=== PATIENT | female | born 1955 | race Caucasian/White ===

== ENCOUNTER 2017-03-03 18:06 | Emergency (ER) | payer BC ==
--- NOTE | 2017-03-03 18:50 | EDM.PDOC ---
ED HPI GENERAL MEDICAL PROBLEM - General Chief Complaint: Neurological Problem Stated Complaint: DIZZY Time Seen by Provider: 03/03/17 18:49 Source of Information: Reports: Patient History Limitations: Reports: No Limitations - History of Present Illness INITIAL COMMENTS - FREE TEXT/NARRATIVE: History of present illness: [61-year-old female presenting with complaints of feeling dizzy. Patient unable to describe whether it's more of a vertical or an actual syncope nature of dizziness.] Review of systems: As per history of present illness and below otherwise all systems reviewed and negative. Past medical history: As per history of present illness and as reviewed below otherwise noncontributory. Surgical history: As per history of present illness and as reviewed below otherwise noncontributory. Social history: No reported history of drug or alcohol abuse. Family history: As per history of present illness and as reviewed below otherwise noncontributory. Physical exam: HEENT: Atraumatic, normocephalic, pupils reactive, negative for conjunctival pallor or scleral icterus, mucous membranes moist, throat clear, neck supple, nontender, trachea midline. Lungs: Clear to auscultation, breath sounds equal bilaterally, chest nontender. Heart: S1S2, regular, negative for clicks, rubs, or JVD. Abdomen: Soft, nondistended, nontender. Negative for masses or hepatosplenomegaly. Negative for costovertebral tenderness. Pelvis: Stable nontender. Genitourinary: Deferred. Rectal: Deferred. Extremities: Atraumatic, negative for cords or calf pain. Neurovascular unremarkable. Neuro: Awake, alert, oriented. Cranial nerves II through XII unremarkable. Cerebellum unremarkable. Motor and sensory unremarkable throughout. Exam nonfocal. Upon exam patient indicated she had more feelings of dizziness with position change and so orthostatic blood pressures were ordered. Diagnostics: [Static vital signs, CBC, CMP] Therapeutics: [] Impression: [Vertigo] Plan: [Monitor salt intake monitor blood pressure] Definitive disposition and diagnosis as appropriate pending reevaluation and review of above. Headache Pain Score (Numeric/FACES): 5 - Related Data Allergies Allergy/AdvReac Type Severity Reaction Status Date / Time No Known Allergies Allergy Verified 03/03/17 18:19 Home Meds: Home Meds . [No Known Home Meds] 03/03/17 [History] Past Medical History - Past Health History Medical/Surgical History: Denies Medical/Surgical History - Infectious Disease History Infectious Disease History: Reports: Chicken Pox, Shingles - Past Surgical History GI Surgical History: Reports: Appendectomy Female Surgical History: Reports: Section Social & Family History - Family History Family Medical History: Noncontributory - Tobacco Use Smoking Status *Q: Never Smoker - Recreational Drug Use Recreational Drug Use: No ED ROS GENERAL - Review of Systems Review Of Systems: See Below (See history of present illness) ED EXAM, GENERAL - Physical Exam Exam: See Below (See history of present illness) Course - Vital Signs Last Recorded V/S: Last Vital Signs Temp 36.4 C 03/03/17 20:00 Pulse 63 03/03/17 20:00 Resp 16 03/03/17 20:00 BP 145/68 H 03/03/17 20:00 Pulse Ox 99 03/03/17 20:00 Orthostatic Blood Pressure [ 159/66 Standing] Orthostatic Blood Pressure [ 148/61 Sitting] Orthostatic Blood Pressure [ 152/62 Supine] - Orders/Labs/Meds Orders: Active Orders 24 hr Category Date Time Status EKG 12 Lead [EKG Documentation Completion] [RC] STAT Care 03/03/17 18:24 Active Labs: Laboratory Tests 03/03/17 03/03/17 03/03/17 Range/Units 19:33 19:33 19:33 WBC 6.64 (4.0-11.0) K/uL RBC 4.18 L (4.30-5.90) M/uL Hgb 12.4 (12.0-16.0) g/dL Hct 37.5 (36.0-46.0) % MCV 89.7 (80.0-98.0) fL MCH 29.7 (27.0-32.0) pg MCHC 33.1 (31.0-37.0) g/dL RDW Std Deviation 42.7 (28.0-62.0) fl RDW Coeff of Irwin 13 (11.0-15.0) % Plt Count 158 (150-400) K/uL MPV 10.10 (7.40-12.00) fL Neut % (Auto) 51.6 (48.0-80.0) % Lymph % (Auto) 40.8 H (16.0-40.0) % Charlton % (Auto) 5.7 (0.0-15.0) % Eos % (Auto) 1.1 (0.0-7.0) % Baso % (Auto) 0.8 (0.0-1.5) % Neut # (Auto) 3.4 (1.4-5.7) K/uL Lymph # (Auto) 2.7 H (0.6-2.4) K/uL Charlton # (Auto) 0.4 (0.0-0.8) K/uL Eos # (Auto) 0.1 (0.0-0.7) K/uL Baso # (Auto) 0.1 (0.0-0.1) K/uL Nucleated RBC % 0.0 /100WBC Nucleated RBCs # 0 K/uL Sodium 140 (136-146) mmol/L Potassium 4.2 (3.5-5.1) mmol/L Chloride 108 (98-110) mmol/L Carbon Dioxide 22 (21-31) mmol/L BUN 16 (6.0-23.0) mg/dL Creatinine 0.8 (0.6-1.5) mg/dL Est Cr Clr Drug Dosing 67.38 mL/min Estimated GFR (MDRD) > 60.0 ml/min Glucose 104 (60-110) mg/dL Calcium 9.1 (8.8-10.8) mg/dL Total Bilirubin 0.5 (0.1-1.5) mg/dL AST 16 (5-40) IU/L ALT 18 (8-54) IU/L Alkaline Phosphatase 71 (40-150) Troponin I < 0.10 (0.0-0.29) NG/ML Total Protein 7.2 (6.0-8.0) g/dL Albumin 4.2 (3.4-4.8) g/dL Globulin 3.0 (2.0-3.5) g/dL Albumin/Globulin Ratio 1.4 (1.3-2.8) Departure - Departure Time of Disposition: 20:38 Disposition: Home, Self-Care 01 Condition: Good Clinical Impression: Vertigo - Discharge Information Forms: ED Department Discharge Additional Instructions: The following information is given to patients seen in the emergency department who are being discharged to home. This information is to outline your options for follow-up care. We provide all patients seen in our emergency department with a follow-up referral. The need for follow-up, as well as the timing and circumstances, are variable depending upon the specifics of your emergency department visit. If you don't have a primary care physician on staff, we will provide you with a referral. We always advise you to contact your personal physician following an emergency department visit to inform them of the circumstance of the visit and for follow-up with them and/or the need for any referrals to a consulting specialist. The emergency department will also refer you to a specialist when appropriate. This referral assures that you have the opportunity for follow-up care with a specialist. All of these measure are taken in an effort to provide you with optimal care, which includes your follow-up. Under all circumstances we always encourage you to contact your private physician who remains a resource for coordinating your care. When calling for follow-up care, please make the office aware that this follow-up is from your recent emergency room visit. If for any reason you are refused follow-up, please contact the [facility] Emergency Department at and asked to speak to the emergency department charge nurse. Monitored ideas discussed Take your blood pressure randomly and keep a journal Follow-up with PCP in 1-2 days Return to ED as needed as discussed
[2017-03-03 20:01] LABS: CHLORIDE,CL 108 mmol/L (98-110); SODIUM,NA 140 mmol/L (136-146)
[2017-03-03 20:48] VITALS: BP 135/74
== END 2017-03-03 20:46 | disposition home or self-care (01) ==
LOC: MW.ED 18:06
DX: R42 Dizziness and giddiness (principal); Z90.49 Acquired absence of other specified parts of digestive tract
CPT/HCPCS: 36415; 80053; 84484; 85025; 93005; 99282; 99285-25

== ENCOUNTER 2017-03-06 19:18 | Observation (INO) | payer BC ==
[2017-03-06] MEDS ORDERED: Sodium Chloride 0.9% 1,000 ML IV ONE (19:25)
--- NOTE | 2017-03-06 19:26 | EDM.PDOC ---
ED HPI GENERAL MEDICAL PROBLEM - General Stated Complaint: NUMBNESS RT ARM/HBP Time Seen by Provider: 03/06/17 19:25 Source of Information: Reports: Patient - History of Present Illness INITIAL COMMENTS - FREE TEXT/NARRATIVE: HISTORY AND PHYSICAL: History of present illness: [][]Patient presents via private vehicle She developed left facial numbness and left arm numbness approximately 30 minutes prior to arrival, she does complain of some mild dizziness No fever nausea vomiting chills sweats no chest pain shortness breath headache palpitation no bowel or urine symptoms Review of systems: As per history of present illness and below otherwise all systems reviewed and negative. Past medical history: As per history of present illness and as reviewed below otherwise noncontributory. Surgical history: As per history of present illness and as reviewed below otherwise noncontributory. Social history: No reported history of drug or alcohol abuse. Family history: As per history of present illness and as reviewed below otherwise noncontributory. Physical exam: HEENT: Atraumatic, normocephalic, pupils reactive, negative for conjunctival pallor or scleral icterus, mucous membranes moist, throat clear, neck supple, nontender, trachea midline. Lungs: Clear to auscultation, breath sounds equal bilaterally, chest nontender. Heart: S1S2, regular, negative for clicks, rubs, or JVD. Abdomen: Soft, nondistended, nontender. Negative for masses or hepatosplenomegaly. Negative for costovertebral tenderness. Pelvis: Stable nontender. Genitourinary: Deferred. Rectal: Deferred. Extremities: Atraumatic, negative for cords or calf pain. Neurovascular unremarkable. Neuro: Awake, alert, oriented. Cranial nerves II through XII unremarkable. Cerebellum unremarkable. Motor and sensory unremarkable throughout. Exam nonfocal. Diagnostics: []Lab as below EKG Chest [address] without Therapeutics: []1 L normal saline bolus KCl 40 mEq by mouth now Impression: []Left-sided facial numbness Definitive disposition and diagnosis as appropriate pending reevaluation and review of above. headache Pain Score (Numeric/FACES): 3 - Related Data Allergies Allergy/AdvReac Type Severity Reaction Status Date / Time No Known Allergies Allergy Verified 03/06/17 20:14 Home Meds: Home Meds . [No Known Home Meds] 03/03/17 [History] Past Medical History - Past Health History Medical/Surgical History: Denies Medical/Surgical History - Infectious Disease History Infectious Disease History: Reports: Chicken Pox, Shingles - Past Surgical History GI Surgical History: Reports: Appendectomy Female Surgical History: Reports: Section Social & Family History - Family History Family Medical History: Noncontributory - Tobacco Use Smoking Status *Q: Never Smoker - Recreational Drug Use Recreational Drug Use: No ED ROS GENERAL - Review of Systems Review Of Systems: ROS reveals no pertinent complaints other than HPI. ED EXAM, GENERAL - Physical Exam Exam: See Below Course - Vital Signs Last Recorded V/S: Last Vital Signs Temp 36.3 C 03/06/17 19:30 Pulse 110 H 03/06/17 19:30 Resp 18 03/06/17 19:30 BP 194/107 H 03/06/17 19:30 Pulse Ox 96 03/06/17 19:30 - Orders/Labs/Meds Orders: Active Orders 24 hr Category Date Time Status EKG Documentation Completion [RC] STAT Care 03/06/17 19:25 Active Chest 1V Frontal [CR] Stat Exams 03/06/17 19:24 Taken Head wo Cont [CT] Stat Exams 03/06/17 19:24 Taken Labs: Laboratory Tests 03/06/17 03/06/17 03/06/17 Range/Units 19:28 19:28 19:28 WBC 9.69 (4.0-11.0) K/uL RBC 4.51 (4.30-5.90) M/uL Hgb 13.6 (12.0-16.0) g/dL Hct 40.0 (36.0-46.0) % MCV 88.7 (80.0-98.0) fL MCH 30.2 (27.0-32.0) pg MCHC 34.0 (31.0-37.0) g/dL RDW Std Deviation 41.4 (28.0-62.0) fl RDW Coeff of Irwin 13 (11.0-15.0) % Plt Count 177 (150-400) K/uL MPV 10.30 (7.40-12.00) fL Neut % (Auto) 42.2 L (48.0-80.0) % Lymph % (Auto) 48.8 H (16.0-40.0) % Esmeralda % (Auto) 6.6 (0.0-15.0) % Eos % (Auto) 1.9 (0.0-7.0) % Baso % (Auto) 0.5 (0.0-1.5) % Neut # (Auto) 4.1 (1.4-5.7) K/uL Lymph # (Auto) 4.7 H (0.6-2.4) K/uL Esmeralda # (Auto) 0.6 (0.0-0.8) K/uL Eos # (Auto) 0.2 (0.0-0.7) K/uL Baso # (Auto) 0.1 (0.0-0.1) K/uL Nucleated RBC % 0.0 /100WBC Nucleated RBCs # 0 K/uL INR 1.04 (0.86-1.11) Sodium 138 (136-146) mmol/L Potassium 4.3 (3.5-5.1) mmol/L Chloride 103 (98-110) mmol/L Carbon Dioxide 22 (21-31) mmol/L BUN 11 (6.0-23.0) mg/dL Creatinine 0.9 (0.6-1.5) mg/dL Est Cr Clr Drug Dosing TNP Estimated GFR (MDRD) > 60.0 ml/min Glucose 110 (60-110) mg/dL Calcium 9.7 (8.8-10.8) mg/dL Total Bilirubin 0.6 (0.1-1.5) mg/dL AST 19 (5-40) IU/L ALT 20 (8-54) IU/L Alkaline Phosphatase 93 (40-150) Troponin I (0.0-0.29) NG/ML Total Protein 8.1 H (6.0-8.0) g/dL Albumin 4.7 (3.4-4.8) g/dL Globulin 3.4 (2.0-3.5) g/dL Albumin/Globulin Ratio 1.4 (1.3-2.8) / Range/Units 19:28 WBC (4.0-11.0) K/uL RBC (4.30-5.90) M/uL Hgb (12.0-16.0) g/dL Hct (36.0-46.0) % MCV (80.0-98.0) fL MCH (27.0-32.0) pg MCHC (31.0-37.0) g/dL RDW Std Deviation (28.0-62.0) fl RDW Coeff of Irwin (11.0-15.0) % Plt Count (150-400) K/uL MPV (7.40-12.00) fL Neut % (Auto) (48.0-80.0) % Lymph % (Auto) (16.0-40.0) % Esmeralda % (Auto) (0.0-15.0) % Eos % (Auto) (0.0-7.0) % Baso % (Auto) (0.0-1.5) % Neut # (Auto) (1.4-5.7) K/uL Lymph # (Auto) (0.6-2.4) K/uL Esmeralda # (Auto) (0.0-0.8) K/uL Eos # (Auto) (0.0-0.7) K/uL Baso # (Auto) (0.0-0.1) K/uL Nucleated RBC % /100WBC Nucleated RBCs # K/uL INR (0.86-1.11) Sodium (136-146) mmol/L Potassium (3.5-5.1) mmol/L Chloride (98-110) mmol/L Carbon Dioxide (21-31) mmol/L BUN (6.0-23.0) mg/dL Creatinine (0.6-1.5) mg/dL Est Cr Clr Drug Dosing Estimated GFR (MDRD) ml/min Glucose (60-110) mg/dL Calcium (8.8-10.8) mg/dL Total Bilirubin (0.1-1.5) mg/dL AST (5-40) IU/L ALT (8-54) IU/L Alkaline Phosphatase (40-150) Troponin I < 0.10 (0.0-0.29) NG/ML Total Protein (6.0-8.0) g/dL Albumin (3.4-4.8) g/dL Globulin (2.0-3.5) g/dL Albumin/Globulin Ratio (1.3-2.8) Meds: Medications Discontinued Medications Generic Name Dose Route Start Last Admin Trade Name Freq PRN Reason Stop Dose Admin Aspirin 324 mg 03/06/17 21:03 Aspirin PO 03/06/17 21:04 ONETIME ONE Sodium Chloride 1,000 mls @ 999 mls/hr 03/06/17 19:25 03/06/17 19:50 Normal Saline IV 03/06/17 20:25 999 mls/hr STAT ONE Administration Potassium Chloride 40 meq 03/06/17 20:59 Potassium Chloride PO 03/06/17 21:00 ONETIME ONE Departure - Departure Time of Disposition: 21:14 Disposition: Refer to Observation Condition: Fair Clinical Impression: Numbness, Dizziness - Discharge Information - My Orders Last 24 Hours: My Active Orders 03/06/17 19:24 Chest 1V Frontal [CR] Stat Head wo Cont [CT] Stat 03/06/17 19:25 EKG Documentation Completion [RC] STAT - Assessment/Plan Last 24 Hours: My Active Orders 03/06/17 19:24 Chest 1V Frontal [CR] Stat Head wo Cont [CT] Stat 03/06/17 19:25 EKG Documentation Completion [RC] STAT
[2017-03-06 19:59] LABS: CHLORIDE,CL 103 mmol/L (98-110); SODIUM,NA 138 mmol/L (136-146)
[2017-03-06] MEDS ORDERED: Potassium Chloride 10% 20 MEQ/15 ML Soln 30 ML UD Cup PO ONE (20:59)
[2017-03-06] MEDS ORDERED: Aspirin 81 MG Tab.Chew PO ONE (21:03)
--- NOTE | 2017-03-07 08:01 | CT ---
EXAM DATE: 03/06/17 PATIENT'S AGE: 61 Patient: BRANDON BECKWITH Facility: [place], [place] Site . Site : 1955 Study: CT Head [id number] 7:44:04 PM Ordering Physician: Doctor Manzo Final Report: INDICATION: PAIN LT ARM/FACE X 45 MIN TECHNIQUE: CT Head without contrast. COMPARISON: None. FINDINGS: There is no sign of intracranial hemorrhage or mass effect. Ventricles and sulci are symmetric and midline. The shepherd-white differentiation is preserved. No abnormal intra-axial or extra-axial fluid collection. No acute disease of the visualized paranasal sinuses and mastoid air cells. No fracture evident. No scalp hematoma/laceration. IMPRESSION: No acute intracranial process. If symptoms persist consider further evaluation with a stroke protocol MRI as clinically warranted Dictated by: Luis Miguel Jimenez MD @ 03/06/2017 20:00:22 (Electronic Signature) Report Signed by Proxy. ALYSIA
--- NOTE | 2017-03-07 08:12 | CR ---
EXAM DATE: 03/06/17 PATIENT'S AGE: 61 Patient: BRANDON BECKWITH Facility: [place], [place] Site . Site : 1955 Study: XRay Chest [id number]/19/2017 8:45:31 PM Ordering Physician: Doctor Manzo Final Report: HISTORY: Shortness of breath, extremity numbness. FINDINGS: AP portable chest radiograph demonstrates EKG leads overlying the thorax. The cardiac silhouette is at the upper limits of normal. Pulmonary vasculature is free of cephalization. The small amount of linear density at the left base. No consolidation or pleural effusion is seen. IMPRESSION: 1. Left basilar atelectasis or minimal infiltrate. 2. Borderline cardiomegaly without evidence of CHF. Dictated by Sandra Mary MD @ 03/06/2017 8:52:16 PM Dictated by: Sandra Mary MD @ 03/06/2017 20:52:31 (Electronic Signature) Report Signed by Proxy. ALYSIA
--- NOTE | 2017-03-07 09:09 | PCM.HP ---
H&P History of Present Illness - General Date of Service: 03/07/17 Admit Problem/Dx: TIA Source of Information: Patient, Family History Limitations: Reports: No Limitations - History of Present Illness Initial Comments - Free Text/Narative: 61-year-old female admitted left facial and arm numbness possible TIA with no significant PMH. Patient presented to the emergency department on 03/06/17 for left facial and left arm numbness. She initially presented 30 minutes after her symptoms began. She denies any facial drooping, decreased strength, or slurring of speech during the event. She denies any associated chest pain, palpitations, sob, nausea or vomiting. She's never had similar symptoms before. She is otherwise healthy and reports no history of cardiopulmonary disease. She takes no medications and has no allergies. Patient states that she was in the ED on Saturday 03/03 with dizziness "room spinning" but no numbness or weakness. She was told this was vertigo and discharged home. In ED patient was intially hypertensive with bp 194/107 with hr 110 this with normal saline bolus of 1 L. CBC, Troponin, and CMP were unremarkable. CT of the head showed no acute intracranial process. Patient was admitted for TIA and further workup. headache Pain Score (Numeric/FACES): 3 - Related Data Allergies/Adverse Reactions: Allergies Allergy/AdvReac Type Severity Reaction Status Date / Time No Known Allergies Allergy Verified 03/06/17 20:14 Home Medications: Home Meds . 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 Musculoskeletal History: Reports: None Neurological History: Reports: None Psychiatric History: Reports: None Endocrine/Metabolic History: Reports: None Hematologic History: Reports: None Immunologic History: Reports: None Oncologic (Cancer) History: Reports: None Dermatologic History: Reports: None - Infectious Disease History Infectious Disease History: Reports: Chicken Pox, Shingles - Past Surgical History Cardiovascular Surgical History: Reports: None GI Surgical History: Reports: Appendectomy Female Surgical History: Reports: Section Social & Family History - Family History Family Medical History: Noncontributory Cardiac: Reports: Hypertension GI: Reports: None : Reports: None Endocrine/Metabolic: Reports: Diabetes, type II Hematologic: Reports: None Immunologic: Reports: None Dermatologic: Reports: None Oncologic: Reports: Bone, Esophageal, Lung - Tobacco Use Smoking Status *Q: Never Smoker Second Hand Smoke Exposure: No - Caffeine Use Caffeine Use: Reports: Coffee - Alcohol Use Days Per Week of Alcohol Use: 1 Number of Drinks Per Day: 2 Total Drinks Per Week: 2 - Recreational Drug Use Recreational Drug Use: No H&P Review of Systems - Review of Systems: Review Of Systems: See Below General: Denies: Fever, Chills, Malaise, Weakness HEENT: Denies: Dysphasia, Headaches, Sinus Congestion, Sore Throat Pulmonary: Denies: Shortness of Breath, Wheezing, Hemoptysis Cardiovascular: Denies: Chest Pain, Palpitations, Edema, Blood Pressure Problem Gastrointestinal: Denies: Abdominal Pain, Black Stool, Bloody Stool, Diarrhea Genitourinary: Denies: Dysuria, Hematuria Musculoskeletal: Reports: Arm Pain (left arm tingling). Denies: Neck Pain, Leg Pain Skin: Denies: Cyanosis Psychiatric: Denies: Confusion, Depression Neurological: Denies: Confusion, Dizziness Hematologic/Lymphatic: Denies: Anemia Exam - Exam Exam: See Below - Vital Signs Vital Signs: Last Vital Signs Temp 36.4 C 03/07/17 00:17 Pulse 78 03/07/17 00:17 Resp 16 03/07/17 00:17 BP 132/63 03/07/17 00:17 Pulse Ox 96 03/07/17 00:17 Weight: 80.286 kg - Exam Quality Assessment: DVT Prophylaxis General: Alert, Oriented, Cooperative HEENT: Conjunctiva Clear, EACs Clear, EOMI, Hearing Intact, Mucosa Moist & [place] , Nares Patent, Normal Nasal Septum, Posterior Pharynx Clear Neck: Supple, Trachea Midline, 2 Lungs: Clear to Auscultation, Normal Respiratory Effort Cardiovascular: Regular Rate, Regular Rhythm, Normal S1, Normal S2 Abdomen: Normal Bowel Sounds, Soft Back Exam: Normal Inspection Extremities: Normal Inspection, Normal Pulses Peripheral Pulses: 2+: Radial (L), Radial (R), Posterior Tibial (L), Posterior Tibial (R), Dorsalis Pedis (L), Dorsalis Pedis (R) Skin: Warm, Dry, Intact Neurological: Cranial Nerves Intact, Reflexes Equal Bilateral, Normal Speech, Normal Tone, Other (paresthesias of left arm) Neuro Extensive - Mental Status: Alert, Oriented x3, Normal Mood/Affect, Normal Cognition Neuro Extensive - Motor, Sensory, Reflexes: CN II-XII Intact, Normal Reflexes Psychiatric: Alert, Normal Affect, Normal Mood - Patient Data Lab Results Last 24 hrs: Laboratory Results - last 24 hr 03/07/17 Range/Units 04:35 Triglycerides 130 (10-190) mg/dL Cholesterol 198 (131-240) mg/dL LDL Cholesterol, Calc 131 (60-180) mg/dL VLDL Cholesterol 26 (5-55) mg/dL HDL Cholesterol 41 (40-80) mg/dL Cholesterol/HDL Ratio 4.8 (3.3-6.0) Result Diagrams: 03/06/17 19:28 03/06/17 19:28 *Q Meaningful Use (ADM) - VTE *Q VTE Criteria *Q: - Stroke *Q Stroke Criteria *Q: - AMI *Q AMI Criteria *Q: - Problem List (1) TIA (transient ischemic attack) SNOMED Code(s): 549141476, 039387097 ICD Code: G45.9 - TRANSIENT CEREBRAL ISCHEMIC ATTACK, UNSPECIFIED Status: Acute Priority: High Current Visit: Yes Qualifiers: Transient cerebral ischemia type: unspecified Qualified Code(s): G45.9 - Transient cerebral ischemic attack, unspecified (2) Numbness SNOMED Code(s): 37601796 ICD Code: R20.0 - ANESTHESIA OF SKIN Status: Acute Priority: High Current Visit: Yes Problem List Initiated/Reviewed/Updated: Yes Orders Last 24hrs: Active Orders 24 hr Category Date Time Status Telemetry Monitoring [Cardiac Monitoring] [RC] . Care 03/06/17 23:52 Active DIRECTED Heart Healthy Diet [DIET] Diet 03/06/17 Dinner Active Ang Head wo Cont [MR] Routine Exams 03/07/17 07:45 Ordered Brain w wo Cont [MR] Routine Exams 03/07/17 00:25 Ordered Carotid Comp [US] Routine Exams 03/07/17 00:27 Ordered Echo Comp wo Cont [US] Routine Exams 03/07/17 00:27 Ordered MRA Neck Without Contrast [Ang Neck wo Cont] [MR] Exams 03/07/17 07:45 Ordered Routine Assessment/Plan Comment:: 61-year-old female admitted left facial and arm numbness possible TIA with no significant PMH. Left facial and arm numbness: Numbness has resolved this am but she is still having some paresthesias to the left face and arm. Will proceed with stroke workup. Brain MRI, MRA head and neck, echocardiogram, lipid panel and A1C ordered. Patient did receive aspirin in the ED. Have consulted Dr. Cruz neurology. Patient on telemetry. Dispo: After studies have been done and Dr. Cruz has seen patient
[2017-03-07] MEDS ORDERED: LORazepam 2 MG/ML MDV IVPUSH ONE (11:00)
--- NOTE | 2017-03-07 12:56 | PCM.CONS ---
[id number] dizziness and left arm pain - History of Present Illness Initial Comments - Free Text/Narative: On March 03, she developed dizziness. She primarily noticed when she would stand up and start moving. It was s a lightheaded sensation as well as sensation of spinning. She would occasionally note mild symptoms when she was sitting down. These episodes would be associated with mild frontal headache. No nausea or vomiting. She may have been mildly off balance when she had episodes spinning. She was evaluated in the ED on Monday. Symptoms improved, and she felt no symptoms on Monday and earlier part of yester. Yesterday afternoon, she developed severe episode of dizziness similar to what she had on Monday and Monday. Around this time, she felt left arm pain. It felt like a pressure cuff was squeezing her arm. She noticed numbness in her arm, and pain extended down arm and up left side of neck to her jaw line. These symptoms have improved , but she still feels a strange sensation in her left upper limb. She has mild frontal pressure like headache. She is still dizzy when she stands up. In the ED on 03/03/2017 orthostatics standing 159/66, sitting 148/61, supine 152/62; troponin was normal Labs 03/06 -03/07 troponin normal, Hgb A1c 6.1, normal CMP, normal CBC, lipids LDL 131 CT head was normal headache Pain Score (Numeric/FACES): 3 - Related Data Allergies/Adverse Reactions: Allergies Allergy/AdvReac Type Severity Reaction Status Date / Time No Known Allergies Allergy Verified 03/06/17 20:14 Home Medications: Home Meds . [No Known Home Meds] 03/03/17 [History] Past Medical History - Past Health History Medical/Surgical History: Denies Medical/Surgical History HEENT History: Reports: None Cardiovascular History: Reports: Other (See Below) Other Cardiovascular History: h/o increase blood pressure but not diagnose Respiratory History: Reports: None Gastrointestinal History: Reports: None Genitourinary History: Reports: None HIDE DYER History: Reports: None Musculoskeletal History: Reports: None Neurological History: Reports: None Psychiatric History: Reports: None Endocrine/Metabolic History: Reports: None Hematologic History: Reports: None Immunologic History: Reports: None Oncologic (Cancer) History: Reports: None Dermatologic History: Reports: None - Infectious Disease History Infectious Disease History: Reports: Chicken Pox, Shingles - Past Surgical History Cardiovascular Surgical History: Reports: None GI Surgical History: Reports: Appendectomy Female Surgical History: Reports: Section Social & Family History - Family History Family Medical History: Noncontributory Cardiac: Reports: Hypertension GI: Reports: None : Reports: None Endocrine/Metabolic: Reports: Diabetes, type II Hematologic: Reports: None Immunologic: Reports: None Dermatologic: Reports: None Oncologic: Reports: Bone, Esophageal, Lung - Tobacco Use Smoking Status *Q: Never Smoker Second Hand Smoke Exposure: No - Caffeine Use Caffeine Use: Reports: Coffee - Alcohol Use Days Per Week of Alcohol Use: 1 Number of Drinks Per Day: 2 Total Drinks Per Week: 2 - Recreational Drug Use Recreational Drug Use: No H&P Review of Systems - Review of Systems: Review Of Systems: ROS reveals no pertinent complaints other than HPI. Exam - Exam Exam: See Below - Vital Signs Vital Signs: Last Vital Signs Temp 36.9 C 03/07/17 09:00 Pulse 85 03/07/17 09:00 Resp 16 03/07/17 09:00 BP 127/62 03/07/17 09:00 Pulse Ox 95 03/07/17 09:00 Weight: 80.286 kg - Exam Physical Exam Comments:: Constitutional: No acute distress Psychiatric: Mood/Affect: normal/appropriate Neurological: Mental Status: General: Normal activity, good hygiene, appropriate appearance. Level of consciousness: Awake, alert. Orientation: Oriented to person, place, time and situation. Concentration/Attention Span: Normal. Comprehension/Praxis: Able to perform a three step command. Fund of Knowledge/memory: Adequate recent and remote recall. Language: Fluent and articulate without evidence of aphasia or dysarthria. Thought Content: Normal. Insight/Judgement: Normal. Cranial Nerves: Pupils equally round and reactive to light. Visual cameron full to confrontation. Gaze conjugate. Horizontal nystagmus with left gaze. Sensation intact and symmetric to light touch. Facial strength is full and symmetric. Palate elevates symmetrically. Normal shrug bilaterally. Tongue protrudes midline Motor: Normal tone in all groups. No drift. Power is 5/5 throughout proximal and distal muscles. Sensation: Sensation is intact to temp , vibratory sense Deep tendon reflexes: Normoactive throughout. Plantar responses are flexor bilaterally. Coordination: Finger to nose, heel to anderson and rapid alternating movements are intact. Gait: Cautious gait. HEENT: Eyes: non icteric, Mouth: moist mucus membranes Cardiovascular: RRR, no obvious murmur Respiratory: clear lungs GI: non tender Musculoskeletal: non tender Skin: no visible rash - Patient Data Lab Results Last 24 hrs: Laboratory Results - last 24 hr 03/07/17 03/07/17 Range/Units 04:35 05:35 Hemoglobin A1c 6.1 H (0.0-6.0) % Triglycerides 130 (10-190) mg/dL Cholesterol 198 (131-240) mg/dL LDL Cholesterol, Calc 131 (60-180) mg/dL VLDL Cholesterol 26 (5-55) mg/dL HDL Cholesterol 41 (40-80) mg/dL Cholesterol/HDL Ratio 4.8 (3.3-6.0) Result Diagrams: 03/06/17 19:28 03/06/17 19:28 Consult PN Assessment/Plan Procedures: Procedures ASSAY OF TROPONIN QUANT (03/03/17) COMPLETE CBC W/AUTO DIFF WBC (03/03/17) COMPREHEN METABOLIC PANEL (03/03/17) ELECTRIC STIMULATION THERAPY (01/15/14) EMERGENCY DEPT VISIT (03/03/17) HOT OR COLD PACKS THERAPY (01/20/14) PT EVALUATION (01/15/14) ROUTINE VENIPUNCTURE (03/03/17) THERAPEUTIC EXERCISES (01/20/14) (1) Dizziness SNOMED Code(s): 038131112, [id number] Code(s): R42 - DIZZINESS AND GIDDINESS Current Visit: Yes Assessment:: 61 year old woman with 4 days history of episodic dizziness primarily with standing and one day history of left arm and neck pain as well as subjective numbness. Examination reveals mildly ataxic gait and end gaze lateral nystagmus , otherwise normal neuro examination. The left arm and neck pain would be unusual for TIA/stroke, but I agree with work up including MRI, MRA head and neck, TTE, telemetry. I will defer to primary team regarding work up cardiac ischemia given distribution of pain. Addendum: MRI brain showed no acute finding. MRA head and neck was unremarkable. This does not rule out TIA, but she was still having symptoms, albeit vague symptoms today, so I would have expected to see abnormalities if symptoms were due to cerebral ischemia. (2) Numbness SNOMED Code(s): 76123752 Code(s): R20.0 - ANESTHESIA OF SKIN Priority: High Current Visit: Yes Problem List Initiated/Reviewed/Updated: Yes
[2017-03-07] MEDS ORDERED: Gadobenate Dimeglumine 529 MG/ML 20 ML SDV IVPUSH STA (13:18)
--- NOTE | 2017-03-07 14:59 | MR ---
EXAMINATION: MRI of the pain with and without contrast, MRA head and MRA neck without contrast. TECHNIQUE: Multiplanar and multisequence imaging of the brain without and following the administrati on of 16 mL of MultiHance. Additional [id number] imaging obtained through the head and neck with thick slab map reconstructions. HISTORY: Facial and are numbness. FINDINGS: MRI brain: Cerebral hemispheres and the deep nuclei are without hemorrhage, mass, edema, gliosis, en hancement or atrophy. No extraaxial collections or hemorrhage. The ventricular system is of normal size and configuration without hydrocephalus. No abnormal diffusion restriction. Brainstem and cerebellum are without hemorrhage, mass, edema, gliosis, enhancement or atrophy. The carotid basilar artery flow voids are intact. There is a trace fluid within the mastoid air cells. No internal auditory canal or cerebellopontine angle masses or enhancement. The paranasal sinuses are clear. The globes, optic nerves, orbital ap ices, optic chiasm, optic tracts, and visual cortices are unremarkable. Pituitary and sella turcica are unremarkable. No meningeal enhancement. The craniocervical junctio n is unremarkable. No siderosis or evidence of vascular malformation. The calvarium is intact. The re is a tiny T1 and T2 bright enhancing calvarial nodule measuring 5 mm within the left occipital re gion. MRA head: The distal internal carotid arteries are normal. The Middle, anterior, and posterior cereb ral arteries appear grossly normal. The right posterior cerebral artery is predominantly supplied by the right posterior communicating artery. The left posterior communicating artery is diminutive. Th e vertebral basilar system appears grossly normal. No definite aneurysm or stricture however mild mo tion artifact is noted. MRA neck: There is a normal three-vessel origin on the arch. The right vertebral artery is dominant. The vertebral arteries demonstrate antegrade flow. No significant stricture identified within the v ertebral, and common, internal carotid arteries. However the proximal vertebral arteries are not wel l characterized. IMPRESSION: 1. No acute intracranial findings. 2. Minimal small vessel ischemic changes. 3. Probable tiny calvarial hemangioma within the left occipital region. 4. Grossly unremarkable intracranial neck to cranial arterial circulation.
[2017-03-07] MEDS ORDERED: Acetaminophen 325 MG Tab PO PRN (21:37)
[2017-03-08 08:11] VITALS: BP 119/58
--- NOTE | 2017-03-08 12:11 | PCM.DCSUM1 ---
[id number] Course Brief History: Patient presented to the emergency department on 03/06/17 for left facial and left arm numbness. She initially presented 30 minutes after her symptoms began. She denied any facial drooping, decreased strength, or slurring of speech during the event. She denied any associated chest pain, palpitations, sob, nausea or vomiting. She did state that the numbness and tingling started after she had pain in her jaw and arm. She is otherwise healthy and reported no history of cardiopulmonary disease. She takes no medications and has no allergies. Patient stated that she was in the ED on Saturday 03/03 with dizziness "room spinning" but no numbness or weakness. She was told this was vertigo and discharged home. - Discharge Data Discharge Date: 03/08/17 Discharge Disposition: Home, Self-Care 01 Condition: Good - Discharge Diagnosis/Problem(s) (1) Numbness SNOMED Code(s): 09649446 ICD Code: R20.0 - ANESTHESIA OF SKIN Status: Acute Priority: High - Patient Instructions Diet: Regular Diet as Tolerated Activity: Rest and Relax Today Driving: Do Not Drive Showering/Bathing: May Shower Notify Provider of: Fever, Increased Pain, Swelling and Redness, Drainage, Nausea and/or Vomiting Other/Special Instructions: Follow-up with scheduled primary care appointment. Return to ED if any new symptoms. - Discharge Plan Home Medications: Home Meds . [No Known Home Meds] 03/03/17 [History] Patient Handouts: Transient Ischemic Attack, [id number], Dizziness, Easy-to- Read Referrals: Joann Gramajo NP [Nurse Practitioner] - 03/16/17 2:15 pm - General Info Date of Service: 03/08/17 Admission Dx/Problem (Free Text: dizziness and left arm pain Subjective Update: Doing well no numbness but still some "tingling" on top of left hand. No chest pain, palpitations, sob. Ready to go home. - Review of Systems General: Denies: Fever, Weakness, Fatigue HEENT: Denies: headaches Pulmonary: Denies: shortness of breath, wheezing Cardiovascular: Denies: Chest Pain, Palpitations, Edema Gastrointestinal: Denies: Abdominal pain, Nausea, Vomiting Genitourinary: Denies: dysuria, hematuria Musculoskeletal: Denies: neck pain, leg pain Skin: Denies: cyanosis Neurological: Reports: Headache. Denies: Confusion, Dizziness Psychiatric: Denies: confusion - Patient Data Vitals - Most Recent: Last Vital Signs Temp 37.0 C 03/08/17 07:38 Pulse 74 03/08/17 07:38 Resp 16 03/08/17 07:38 BP 119/58 L 03/08/17 07:38 Pulse Ox 93 L 03/08/17 07:38 Weight - Most Recent: 80.286 kg I&O - Last 24 hours: Intake & Output 03/07/17 03/08/17 03/08/17 22:59 06:59 14:59 Intake Total 700 100 Output Total 2200 500 Balance -1500 -400 Lab Results - Last 24 hrs: Laboratory Results - last 24 hr 03/07/17 03/07/17 03/08/17 Range/Units 14:19 19:05 00:31 Troponin I < 0.10 < 0.10 < 0.10 (0.0-0.29) NG/ML Med Orders - Current: Current Medications Discontinued Medications Acetaminophen (Tylenol) 650 mg PO Q4H PRN PRN Reason: Pain Last Admin: 03/07/17 21:44 Dose: 650 mg Aspirin (Aspirin) 324 mg PO ONETIME ONE Stop: 03/06/17 21:04 Last Admin: 03/06/17 21:33 Dose: 324 mg Gadobenate Dimeglumine (Multihance) 20 ml IVPUSH ONETIME STA Stop: 03/07/17 13:19 Last Admin: 03/07/17 13:19 Dose: 16 ml Sodium Chloride (Normal Saline) 1,000 mls @ 999 mls/hr IV STAT ONE Stop: 03/06/17 20:25 Last Admin: 03/06/17 19:50 Dose: 999 mls/hr Lorazepam (Ativan) 1 mg IVPUSH ONCALL ONE Stop: 03/07/17 11:01 Last Admin: 03/07/17 11:07 Dose: 1 mg Potassium Chloride (Potassium Chloride) 40 meq PO ONETIME ONE Stop: 03/06/17 21:00 Last Admin: 03/06/17 21:31 Dose: Not Given - Exam General: Reports: alert, oriented, cooperative, no acute distress HEENT: Reports: Pupils equal, Pupils reactive, EOMI, Mucous membr. moist/pink Neck: Reports: supple Lungs: Reports: Clear to auscultation, Normal respiratory effort Cardiovascular: Reports: Regular Rate, Regular Rhythm Abdomen: Reports: bowel sounds present, soft, no tenderness, no distension Back Exam: Reports: Normal Inspection Extremities: Reports: no edema, normal pulses Skin: Reports: warm, dry, intact Wound/Incisions: Reports: healing well Neurological: Reports: no new focal deficit Psy/Mental Status: Reports: alert, normal affect, normal mood Original Note: <Everton Gallegos - Last Filed: 03/08/17 12:59> Discharge Summary - Hospital Course HPI Initial Comments: 61-year-old female admitted 03/06/17 for left facial and arm numbness possible TIA with no significant PMH. Brief History: Patient presented to the emergency department on 03/06/17 for left facial and left arm numbness. She initially presented 30 minutes after her symptoms began. She denied any facial drooping, decreased strength, or slurring of speech during the event. She denied any associated chest pain, palpitations, sob, nausea or vomiting. She did state that the numbness and tingling started after she had pain in her jaw and arm. She is otherwise healthy and reported no history of cardiopulmonary disease. She takes no medications and has no allergies. Patient stated that she was in the ED on Saturday 03/03 with dizziness "room spinning" but no numbness or weakness. She was told this was vertigo and discharged home. - Discharge Data Discharge Date: 03/08/17 Discharge Disposition: Home, Self-Care 01 Condition: Good - Discharge Diagnosis/Problem(s) (1) Numbness SNOMED Code(s): 61891587 ICD Code: R20.0 - ANESTHESIA OF SKIN Status: Acute Priority: High - Patient Summary/Data Hospital Course: In ED patient was intially hypertensive with bp 194/107 with hr 110 this with normal saline bolus of 1 L. CBC, Troponin, and CMP were unremarkable. CT of the head showed no acute intracranial process. Patient was admitted for possible TIA and stroke work-up. During patient stay she continued to have some paresthesias to the right hand. Numbness resolved on day of admission. MRI of brain and MRA of the head and neck revealed no acute intracranial finding, minimal small vessel ischemic changes, a probable tiny calvarial hemangioma withing the left occipital region and grossly unremarkable intracranial neck to cranial circulation. Her Echocardiogram showed LVEF of 55-60%, normal LVSF, borderline dilation of the left atrium, mild mitral valve regurg, and no regional wall motion abnormalities. Dr. Cruz, neurolgist was consulted and agreed with stroke work-up but after MRI was negative felt that this was not a CVA. Secondary to the reporting of pain serial troponins were taken and were all normal. - Patient Instructions Diet: Regular Diet as Tolerated Activity: Rest and Relax Today Driving: Do Not Drive Showering/Bathing: January Shower Notify Provider of: Fever, Increased Pain, Swelling and Redness, Drainage, Nausea and/or Vomiting Other/Special Instructions: Follow-up with scheduled primary care appointment. Return to ED if any new symptoms. - Discharge Plan Home Medications: Home Meds . [No Known Home Meds] 03/03/17 [History] Patient Handouts: Transient Ischemic Attack, [id number], Dizziness, Easy-to- Read Referrals: Joann Gramajo NP [Nurse Practitioner] - 03/16/17 2:15 pm - Discharge Summary/Plan Comment DC Time >30 min.: Yes Discharge Summary/Plan Comment: 61-year-old female admitted 03/06/17 for left facial and arm numbness possible TIA with no significant PMH. Patient presented to the emergency department on 03/06/17 for left facial and left arm numbness. She initially presented 30 minutes after her symptoms began. She denied any facial drooping, decreased strength, or slurring of speech during the event. She denied any associated chest pain, palpitations, sob, nausea or vomiting. She did state that the numbness and tingling started after she had pain in her jaw and arm. She is otherwise healthy and reported no history of cardiopulmonary disease. She takes no medications and has no allergies. Patient stated that she was in the ED on Saturday 03/03 with dizziness "room spinning" but no numbness or weakness. She was told this was vertigo and discharged home. In ED patient was intially hypertensive with bp 194/107 with hr 110 this with normal saline bolus of 1 L. CBC, Troponin, and CMP were unremarkable. CT of the head showed no acute intracranial process. Patient was admitted for possible TIA and stroke work-up. During patient stay she continued to have some paresthesias to the right hand. Numbness resolved on day of admission. MRI of brain and MRA of the head and neck revealed no acute intracranial finding, minimal small vessel ischemic changes, a probable tiny calvarial hemangioma withing the left occipital region and grossly unremarkable intracranial neck to cranial circulation. Her Echocardiogram showed LVEF of 55-60%, normal LVSF, borderline dilation of the left atrium, mild mitral valve regurg, and no regional wall motion abnormalities. Dr. Cruz, neurolgist was consulted and agreed with stroke work-up but after MRI was negative felt that this was not a CVA. Secondary to the reporting of pain serial troponins were taken and were all normal. Given the above negative finding and the fact that the patient still had mild paresthesias to the right hand on day of discharge this may be more related to nerve impingement and vertigo. Patients lipid panel showed a mildly elevated LDL but ASCVD score was on 4.4% so no statins were recommended. Patient was discharged in good condition on 03/08/19 with PCP follow-up. - Patient Data Vitals - Most Recent: Last Vital Signs Temp 37.0 C 03/08/17 07:38 Pulse 74 03/08/17 07:38 Resp 16 03/08/17 07:38 BP 119/58 L 03/08/17 07:38 Pulse Ox 93 L 03/08/17 07:38 Weight - Most Recent: 80.286 kg I&O - Last 24 hours: Intake & Output 03/07/17 03/08/17 03/08/17 22:59 06:59 14:59 Intake Total 700 100 Output Total 2200 500 Balance -1500 -400 Lab Results - Last 24 hrs: Laboratory Results - last 24 hr 03/07/17 03/07/17 03/08/17 Range/Units 14:19 19:05 00:31 Troponin I < 0.10 < 0.10 < 0.10 (0.0-0.29) NG/ML Med Orders - Current: Current Medications Discontinued Medications Acetaminophen (Tylenol) 650 mg PO Q4H PRN PRN Reason: Pain Last Admin: 03/07/17 21:44 Dose: 650 mg Aspirin (Aspirin) 324 mg PO ONETIME ONE Stop: 03/06/17 21:04 Last Admin: 03/06/17 21:33 Dose: 324 mg Gadobenate Dimeglumine (Multihance) 20 ml IVPUSH ONETIME STA Stop: 03/07/17 13:19 Last Admin: 03/07/17 13:19 Dose: 16 ml Sodium Chloride (Normal Saline) 1,000 mls @ 999 mls/hr IV STAT ONE Stop: 03/06/17 20:25 Last Admin: 03/06/17 19:50 Dose: 999 mls/hr Lorazepam (Ativan) 1 mg IVPUSH ONCALL ONE Stop: 03/07/17 11:01 Last Admin: 03/07/17 11:07 Dose: 1 mg Potassium Chloride (Potassium Chloride) 40 meq PO ONETIME ONE Stop: 03/06/17 21:00 Last Admin: 03/06/17 21:31 Dose: Not Given *Q Meaningful Use (DIS) - VTE *Q VTE Criteria *Q: - Stroke *Q Stroke Criteria *Q: - AMI *Q AMI Criteria *Q: <Aj Cade - Last Filed: 03/08/17 18:26> - Patient Data Vitals - Most Recent: Last Vital Signs Temp 37.0 C 03/08/17 07:38 Pulse 74 03/08/17 07:38 Resp 16 03/08/17 07:38 BP 119/58 L 03/08/17 07:38 Pulse Ox 93 L 03/08/17 07:38 I&O - Last 24 hours: Intake & Output 03/08/17 03/08/17 03/08/17 06:59 14:59 22:59 Intake Total 100 Output Total 500 Balance -400 Lab Results - Last 24 hrs: Laboratory Results - last 24 hr 03/07/17 03/08/17 Range/Units 19:05 00:31 Troponin I < 0.10 < 0.10 (0.0-0.29) NG/ML Med Orders - Current: Current Medications Discontinued Medications Acetaminophen (Tylenol) 650 mg PO Q4H PRN PRN Reason: Pain Last Admin: 03/07/17 21:44 Dose: 650 mg Aspirin (Aspirin) 324 mg PO ONETIME ONE Stop: 03/06/17 21:04 Last Admin: 03/06/17 21:33 Dose: 324 mg Gadobenate Dimeglumine (Multihance) 20 ml IVPUSH ONETIME STA Stop: 03/07/17 13:19 Last Admin: 03/07/17 13:19 Dose: 16 ml Sodium Chloride (Normal Saline) 1,000 mls @ 999 mls/hr IV STAT ONE Stop: 03/06/17 20:25 Last Admin: 03/06/17 19:50 Dose: 999 mls/hr Lorazepam (Ativan) 1 mg IVPUSH ONCALL ONE Stop: 03/07/17 11:01 Last Admin: 03/07/17 11:07 Dose: 1 mg Potassium Chloride (Potassium Chloride) 40 meq PO ONETIME ONE Stop: 03/06/17 21:00 Last Admin: 03/06/17 21:31 Dose: Not Given *Q Meaningful Use (DIS) - VTE *Q VTE Criteria *Q: - Stroke *Q Stroke Criteria *Q: - AMI *Q AMI Criteria *Q: - Free Text/Narrative Note: I have examined the patient. I have discussed findings and treatment plan with resident. I agree with the assessment and plan outlined in the following resident's note.
--- NOTE | 2017-03-10 18:14 | ECHO ---
The echocardiogram report can be seen in this patient's EMR (electronic medical record) in the Reports section. [facility]
== END 2017-03-08 10:20 | disposition home or self-care (01) ==
LOC: MW.ED 19:18 → UNDOADMOB 21:17 → MW.MS 21:17 → UNDOADMOB 21:23 → MW.MS 21:23
PROVIDERS: ADMIT Internal Medicine; ATTEND Internal Medicine
DX: R20.0 Anesthesia of skin (principal); R42 Dizziness and giddiness; R03.0 Elevated blood-pressure reading, without diagnosis of hypertension; Z90.49 Acquired absence of other specified parts of digestive tract; Z98.890 Other specified postprocedural states
CPT/HCPCS: 36415; 70450; 70544; 70547; 70553; 71010; 80053; 80061; 83036; 83735; 84484; 85025; 85610; 93005; 93306; 96361; 96374; 99285; A9270; A9577; G0378; J2060; J7040; 96360

== ENCOUNTER 2019-05-15 18:18 | Emergency (ER) | payer MEDICARE, OTHER ==
[2019-05-15] MEDS ORDERED: Nitroglycerin 2% Oint 1 GM UD Packet TOP ONE (18:26)
[2019-05-15] MEDS ORDERED: Sodium Chloride 0.9% 2.5 ML Syringe FLUSH PRN (18:26)
[2019-05-15] MEDS ORDERED: Sodium Chloride 0.9% 10 ML Syringe FLUSH PRN ×2 (18:26)
[2019-05-15] MEDS ORDERED: Sodium Chloride 0.9% 1,000 ML IV ONE (18:26)
[2019-05-15] MEDS ORDERED: Morphine 2 MG/ML Syringe IVPUSH ONE (18:29)
[2019-05-15] MEDS ORDERED: Ondansetron 4 MG/2 ML SDV IVPUSH ONE (18:30)
--- NOTE | 2019-05-15 18:33 | EDM.PDOC ---
ED HPI GENERAL MEDICAL PROBLEM - General Chief Complaint: Chest Pain Stated Complaint: PT HAS CHEST PAINS Time Seen by Provider: 05/15/19 18:33 - History of Present Illness INITIAL COMMENTS - FREE TEXT/NARRATIVE: HISTORY AND PHYSICAL: History of present illness: Patient 63-year-old white female who is in past medical history presents with concern of left-sided chest pain she describes this initially as sharp with radiation her left shoulder she equivocates regarding any shortness of breath or is no palpitations or diaphoresis this pain now is a left-sided ache and improved significantly since arrival paramedics did give patient nature spray 1 aspirin and atropine for heart rate in the 40s. Review of systems: As per history of present illness and below otherwise all systems reviewed and negative. Past medical history: As per history of present illness and as reviewed below otherwise noncontributory. Surgical history: As per history of present illness and as reviewed below otherwise noncontributory. Social history: No reported history of drug or alcohol abuse. Family history: As per history of present illness and as reviewed below otherwise noncontributory. Physical exam: HEENT: Atraumatic, normocephalic, pupils reactive, negative for conjunctival pallor or scleral icterus, mucous membranes moist, throat clear, neck supple, nontender, trachea midline. Lungs: Clear to auscultation, breath sounds equal bilaterally, chest nontender. Heart: S1S2, regular, negative for clicks, rubs, or JVD. Abdomen: Soft, nondistended, nontender. Negative for masses or hepatosplenomegaly. Negative for costovertebral tenderness. Pelvis: Stable nontender. Genitourinary: Deferred. Rectal: Deferred. Extremities: Atraumatic, negative for cords or calf pain. Neurovascular unremarkable. Neuro: Awake, alert, oriented. Cranial nerves II through XII unremarkable. Cerebellum unremarkable. Motor and sensory unremarkable throughout. Exam nonfocal. Diagnostics: CBC CMP troponin PT/INR chest x-ray EKG Therapeutics: Morphine sulfate 2 mg IV Zofran 4 mg IV and Nitropaste 1 inch IV O2 monitor pacer pads applied Impression: #1 second-degree heart block with 3-1 AV conduction #2 chest pain rule out ACS Definitive disposition and diagnosis as appropriate pending reevaluation and review of above. - Related Data Allergies Allergy/AdvReac Type Severity Reaction Status Date / Time No Known Allergies Allergy Verified 03/06/17 20:14 Home Meds: Home Meds . 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 Musculoskeletal History: Reports: None Neurological History: Reports: None Psychiatric History: Reports: None Endocrine/Metabolic History: Reports: None Hematologic History: Reports: None Immunologic History: Reports: None Oncologic (Cancer) History: Reports: None Dermatologic History: Reports: None - Infectious Disease History Infectious Disease History: Reports: Chicken Pox, Shingles - Past Surgical History Cardiovascular Surgical History: Reports: None GI Surgical History: Reports: Appendectomy Female Surgical History: Reports: Section Social & Family History - Family History Family Medical History: Noncontributory Cardiac: Reports: Hypertension GI: Reports: None : Reports: None Endocrine/Metabolic: Reports: Diabetes, type II Hematologic: Reports: None Immunologic: Reports: None Dermatologic: Reports: None Oncologic: Reports: Bone, Esophageal, Lung - Caffeine Use Caffeine Use: Reports: Coffee ED ROS GENERAL - Review of Systems Review Of Systems: ROS reveals no pertinent complaints other than HPI. ED EXAM, GENERAL - Physical Exam Exam: See Below (See dictation) Course - Orders/Labs/Meds Orders: Active Orders 24 hr Category Date Time Status Cardiac Monitoring [RC] . DIRECTED Care 05/15/19 18:26 Active EKG Documentation Completion [RC] STAT Care 05/15/19 18:26 Active Oxygen Therapy [RC] ASDIRECTED Care 05/15/19 18:26 Active Pulse Oximetry [RC] ASDIRECTED Care 05/15/19 18:26 Active Chest 1V Frontal [CR] Stat Exams 05/15/19 18:26 Ordered CBC WITH AUTO DIFF [HEME] Stat Lab 05/15/19 18:26 Ordered COMPREHENSIVE METABOLIC PN,CMP [CHEM] Stat Lab 05/15/19 18:26 Ordered INR,PT,PROTHROMBIN TIME [COAG] Stat Lab 05/15/19 18:26 Ordered TROPONIN I [CHEM] Stat Lab 05/15/19 18:26 Ordered Morphine Med 05/15/19 18:29 Once 2 mg IVPUSH ONETIME ONE Ondansetron [Zofran] Med 05/15/19 18:30 Once 4 mg IVPUSH ONETIME ONE Sodium Chloride 0.9% [Normal Saline] 1,000 ml Med 05/15/19 18:26 Active IV BOLUS Sodium Chloride 0.9% [Saline Flush] Med 05/15/19 18:26 Active 10 ml FLUSH ASDIRECTED PRN Sodium Chloride 0.9% [Saline Flush] Med 05/15/19 18:26 Active 10 ml FLUSH ASDIRECTED PRN Sodium Chloride 0.9% [Saline Flush] Med 05/15/19 18:26 Active 2.5 ml FLUSH ASDIRECTED PRN Saline Lock Insert [OM.PC] Stat Oth 05/15/19 18:26 Ordered Medication Orders Sodium Chloride (Normal Saline) 1,000 mls @ 999 mls/hr IV BOLUS ONE Stop: 05/15/19 19:26 Morphine Sulfate (Morphine) 2 mg IVPUSH ONETIME ONE Stop: 05/15/19 18:30 Ondansetron HCl (Zofran) 4 mg IVPUSH ONETIME ONE Stop: 05/15/19 18:31 Sodium Chloride (Saline Flush) 10 ml FLUSH ASDIRECTED PRN PRN Reason: Keep Vein Open Sodium Chloride (Saline Flush) 10 ml FLUSH ASDIRECTED PRN PRN Reason: Keep Vein Open Sodium Chloride (Saline Flush) 2.5 ml FLUSH ASDIRECTED PRN PRN Reason: Keep Vein Open Meds: Medications Generic Name Dose Route Start Last Admin Trade Name Freq PRN Reason Stop Dose Admin Sodium Chloride 1,000 mls @ 999 mls/hr 05/15/19 18:26 Normal Saline IV 05/15/19 19:26 BOLUS ONE Morphine Sulfate 2 mg 05/15/19 18:29 Morphine IVPUSH 05/15/19 18:30 ONETIME ONE Ondansetron HCl 4 mg 05/15/19 18:30 Zofran IVPUSH 05/15/19 18:31 ONETIME ONE Sodium Chloride 10 ml 05/15/19 18:26 Saline Flush FLUSH ASDIRECTED PRN Keep Vein Open Sodium Chloride 10 ml 05/15/19 18:26 Saline Flush FLUSH ASDIRECTED PRN Keep Vein Open Sodium Chloride 2.5 ml 05/15/19 18:26 Saline Flush FLUSH ASDIRECTED PRN Keep Vein Open Discontinued Medications Generic Name Dose Route Start Last Admin Trade Name Jorge PRN Reason Stop Dose Admin Nitroglycerin 1 gm 05/15/19 18:26 Nitro-Bid 2% TOP 05/15/19 18:27 ONETIME ONE Departure - Departure Time of Disposition: 18:32 Disposition: DC/Tfer to Acute Hospital 02 Condition: Serious Clinical Impression: Chest pain, Second degree AV block, Mobitz type II - Discharge Information Referrals: PCP,None [Primary Care Provider] - - My Orders Last 24 Hours: My Active Orders 05/15/19 18:26 Cardiac Monitoring [RC] . DIRECTED EKG Documentation Completion [RC] STAT Oxygen Therapy [RC] ASDIRECTED Pulse Oximetry [RC] ASDIRECTED Chest 1V Frontal [CR] Stat CBC WITH AUTO DIFF [HEME] Stat COMPREHENSIVE METABOLIC PN,CMP [CHEM] Stat INR,PT,PROTHROMBIN TIME [COAG] Stat TROPONIN I [CHEM] Stat Sodium Chloride 0.9% [Normal Saline] 1,000 ml IV BOLUS Sodium Chloride 0.9% [Saline Flush] 10 ml FLUSH ASDIRECTED PRN Sodium Chloride 0.9% [Saline Flush] 10 ml FLUSH ASDIRECTED PRN Sodium Chloride 0.9% [Saline Flush] 2.5 ml FLUSH ASDIRECTED PRN Saline Lock Insert [OM.PC] Stat 05/15/19 18:29 Morphine 2 mg IVPUSH ONETIME ONE 05/15/19 18:30 Ondansetron [Zofran] 4 mg IVPUSH ONETIME ONE - Assessment/Plan Last 24 Hours: My Active Orders 05/15/19 18:26 Cardiac Monitoring [RC] . DIRECTED EKG Documentation Completion [RC] STAT Oxygen Therapy [RC] ASDIRECTED Pulse Oximetry [RC] ASDIRECTED Chest 1V Frontal [CR] Stat CBC WITH AUTO DIFF [HEME] Stat COMPREHENSIVE METABOLIC PN,CMP [CHEM] Stat INR,PT,PROTHROMBIN TIME [COAG] Stat TROPONIN I [CHEM] Stat Sodium Chloride 0.9% [Normal Saline] 1,000 ml IV BOLUS Sodium Chloride 0.9% [Saline Flush] 10 ml FLUSH ASDIRECTED PRN Sodium Chloride 0.9% [Saline Flush] 10 ml FLUSH ASDIRECTED PRN Sodium Chloride 0.9% [Saline Flush] 2.5 ml FLUSH ASDIRECTED PRN Saline Lock Insert [OM.PC] Stat 05/15/19 18:29 Morphine 2 mg IVPUSH ONETIME ONE 05/15/19 18:30 Ondansetron [Zofran] 4 mg IVPUSH ONETIME ONE
--- NOTE | 2019-05-15 19:03 | CR ---
INDICATION: Chest pain TECHNIQUE: Chest radiograph 1 view COMPARISON: 03/06/2017 FINDINGS: Moderate degradation of image quality noted due to body habitus. Mediastinum: The mediastinum is normal in appearance. Mild cardiomegaly is noted without interval change. Lung: Mild pulmonary vascular congestion is noted. No sign of pleural effusion seen. No pneumothorax is identified. IMPRESSIONS: 1. Mild pulmonary vascular congestion is noted. 2. Mild cardiomegaly is noted without interval change. Dictated by Matt Champagne MD @ 05/15/2019 7:02:04 PM Dictated by: Matt Champagne MD @ 05/15/2019 19:02:35 (Electronically Signed)
[2019-05-15 19:08] LABS: CHLORIDE,CL 107 mmol/L (98-107); SODIUM,NA 140 mmol/L (136-145)
[2019-05-15 23:49] VITALS: BP 201/78
== END 2019-05-15 19:14 ==
LOC: MW.ED 18:18
DX: I44.1 Atrioventricular block, second degree (principal); Z90.49 Acquired absence of other specified parts of digestive tract
CPT/HCPCS: 36415; 71045; 80053; 84484; 85025; 85610; 96361; 96374; 96375; 99285; A9270; J2270; J2405; J7040; 99284

== ENCOUNTER 2021-08-14 17:39 | Emergency (ER) | payer MEDICARE, OTHER ==
[2021-08-14] MEDS ORDERED: Aspirin 81 MG Tab.Chew PO ONE (17:43)
--- NOTE | 2021-08-14 17:49 | EDM.PDOC ---
<Evelio Quinn Negrita - Last Filed: 08/14/21 18:51> ED HPI GENERAL MEDICAL PROBLEM - General Stated Complaint: SHORTNESS OF BREATH, CHEST PAIN Time Seen by Provider: 08/14/21 17:43 Source of Information: Reports: Patient History Limitations: Reports: No Limitations - History of Present Illness INITIAL COMMENTS - FREE TEXT/NARRATIVE: 66-year-old female past medical history second-degree AV block, Mobitz type II with pacemaker device presents for chest pain and "I just do not feel right". Patient states that she was gambling roughly 20 minutes prior to arrival when she felt lightheaded, dizzy, presyncopal as if she was about to pass out. She left out of concern that she was going to pass out. She then noted chest pressure described as heaviness. She does feel short of breath. She notes some nausea without vomiting. Symptoms are not changed from when they started. She denies any exertion as she was seated in gambling when this started, uncertain if exertion makes it worse. She denies any recent illnesses. She denies any lower extremity swelling, notes they are always a little swollen at baseline. She is on Lasix. She is uncertain if she has had a cardiac stress test but notes that she does not have any stents in her heart and does not have any history of heart attack. - Related Data Allergies Allergy/AdvReac Type Severity Reaction Status Date / Time No Known Allergies Allergy Verified 08/14/21 17:50 Home Meds: Home Meds Furosemide [Lasix] 20 mg PO DAILY 08/14/21 [History] Metoprolol Succinate 25 mg PO DAILY 08/14/21 [History] Past Medical History - Past Health History Medical/Surgical History: Denies Medical/Surgical History HEENT History: Reports: None Cardiovascular History: Reports: Other (See Below) Other Cardiovascular History: h/o increase blood pressure but not diagnose Respiratory History: Reports: None Gastrointestinal History: Reports: None Genitourinary History: Reports: None 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 Musculoskeletal History: Reports: None Neurological History: Reports: None Psychiatric History: Reports: None Endocrine/Metabolic History: Reports: None Hematologic History: Reports: None Immunologic History: Reports: None Oncologic (Cancer) History: Reports: None Dermatologic History: Reports: None - Infectious Disease History Infectious Disease History: Reports: Chicken Pox, Shingles - Past Surgical History Cardiovascular Surgical History: Reports: None GI Surgical History: Reports: Appendectomy Female Surgical History: Reports: Section Social & Family History - Family History Family Medical History: No Pertinent Family History Cardiac: Reports: Hypertension GI: Reports: None : Reports: None Endocrine/Metabolic: Reports: Diabetes, type II Hematologic: Reports: None Immunologic: Reports: None Dermatologic: Reports: None Oncologic: Reports: Bone, Esophageal, Lung - Caffeine Use Caffeine Use: Reports: Coffee ED ROS GENERAL - Review of Systems Review Of Systems: Comprehensive ROS is negative, except as noted in HPI. ED EXAM, GENERAL - Physical Exam Exam: See Below Exam Limited By: No Limitations General Appearance: Alert, WD/WN, No Apparent Distress Ears: Hearing Grossly Normal Throat/Mouth: Normal Voice, No Airway Compromise Head: Atraumatic, Normocephalic Respiratory/Chest: No Respiratory Distress, Lungs Clear, Normal Breath Sounds, No Accessory Muscle Use Cardiovascular: Normal Peripheral Pulses, Regular Rate, Rhythm GI/Abdominal: Soft, Non-Tender Extremities: Normal Inspection Neurological: Alert, Normal Cognition, Normal Gait Psychiatric: Normal Affect, Normal Mood, Anxious Skin Exam: Warm, Dry, Intact, Normal Color #1 Interpretation EKG Date: 08/14/21 Time: 17:42 Rhythm: Other (atrial-sensed, ventricular paced rhythm) Rate (Beats/Min): 93 [place]: Normal P-Wave: Present QRS: Normal ST-T: Normal QT: Normal MS/PQ Interval: 206 EKG Interpretation Comments: when compared to prior, she now has a paced rhythm Course - Re-Assessments/Exams Free Text/Narrative Re-Assessment/Exam: 08/14/21 18:23 Patient does report that her chest pain is mildly improved after the nitroglycerin. She does complain of headache. Will give Tylenol. Of note patient did complain of headache prior to the nitroglycerin, she states it is not much changed after the nitroglycerin. 08/14/21 18:24 BP now 147/89 08/14/21 18:51 Initial set of labs are normal. Patient states that her symptoms are improving, no longer with chest pressure. I spoke with her about possible observation admission for chest pain. She is uncertain if she is wanting to stay but she is willing to stay for a repeat troponin at 3 hours. Will sign out to night team physician to follow-up repeat troponin and ultimate disposition. BP continues to improve, one thirties over eighties Departure - Departure Disposition: Home, Self-Care 01 Clinical Impression: Chest pain, Hypertension - Discharge Information Instructions: Nonspecific Chest Pain, Adult, [id number], Hypertension, Adult, [id number] Referrals: PCP,None [Primary Care Provider] - Additional Instructions: Return if [id number] with your doctor-continue your home medicines. [facility] - Primary Care [address] [place] [address] [facility] [address] [place] [address] The following information is given to patients seen in the emergency department who are being discharged to home. This information is to outline your options for follow-up care. We provide all patients seen in our emergency department with a follow-up referral. The need for follow-up, as well as the timing and circumstances, are variable depending upon the specifics of your emergency department visit. If you don't have a primary care physician on staff, we will provide you with a referral. We always advise you to contact your personal physician following an emergency department visit to inform them of the circumstance of the visit and for follow-up with them and/or the need for any referrals to a consulting specialist. The emergency department will also refer you to a specialist when appropriate. This referral assures that you have the opportunity for follow-up care with a specialist. All of these measure are taken in an effort to provide you with optimal care, which includes your follow-up. Under all circumstances we always encourage you to contact your private physician who remains a resource for coordinating your care. When calling for follow-up care, please make the office aware that this follow-up is from your recent emergency room visit. If for any reason you are refused follow-up, please contact the [facility] Emergency Department at and asked to speak to the emergency department charge nurse. <Jelani Barriga - Last Filed: 08/14/21 21:34> Course - Vital Signs Last Recorded V/S: Last Vital Signs Temp 36.4 C 08/14/21 17:40 Pulse 66 08/14/21 20:37 Resp 18 08/14/21 20:37 BP 129/57 L 08/14/21 20:37 Pulse Ox 97 08/14/21 20:37 - Orders/Labs/Meds Orders: Active Orders 24 hr Category Date Time Status Cardiac Monitoring [RC] . DIRECTED Care 08/14/21 17:43 Active Pulse Oximetry [RC] ASDIRECTED Care 08/14/21 17:43 Active Saline Lock Insert [OM.PC] Stat Oth 08/14/21 17:43 Ordered Labs: Laboratory Tests 08/14/21 08/14/21 08/14/21 Range/Units 17:57 17:57 17:57 WBC 8.02 (4.0-11.0) K/uL RBC 4.35 (4.30-5.90) M/uL Hgb 13.5 (12.0-16.0) g/dL Hct 39.0 (36.0-46.0) % MCV 89.7 (80.0-98.0) fL MCH 31.0 (27.0-32.0) pg MCHC 34.6 (31.0-37.0) g/dL RDW Std Deviation 42.4 (28.0-62.0) fl RDW Coeff of [place] 13 (11.0-15.0) % Plt Count 179 (150-400) K/uL MPV 10.50 (7.40-12.00) fL Neut % (Auto) 52.1 (48.0-80.0) % Lymph % (Auto) 39.9 (16.0-40.0) % [place] % (Auto) 5.2 (0.0-15.0) % Eos % (Auto) 1.9 (0.0-7.0) % Baso % (Auto) 0.9 (0.0-1.5) % Neut # (Auto) 4.2 (1.4-5.7) K/uL Lymph # (Auto) 3.2 H (0.6-2.4) K/uL [place] # (Auto) 0.4 (0.0-0.8) K/uL Eos # (Auto) 0.2 (0.0-0.7) K/uL Baso # (Auto) 0.1 (0.0-0.1) K/uL Nucleated RBC % 0.0 /100WBC Nucleated RBCs # 0 K/uL INR APTT (18.6-31.3) SEC D-Dimer, Quantitative (0.0-0.50) mg/L FEU Sodium 142 (136-145) mmol/L Potassium 3.8 (3.5-5.1) mmol/L Chloride 102 (98-107) mmol/L Carbon Dioxide 26.7 (21.0-32.0) mmol/L BUN 18 (7.0-18.0) mg/dL Creatinine 1.1 H (0.6-1.0) mg/dL Est Cr Clr Drug Dosing 38.71 mL/min Estimated GFR (MDRD) 49.4 ml/min Glucose 191 H (74-106) mg/dL Calcium 9.1 (8.5-10.1) mg/dL Total Bilirubin 0.4 (0.2-1.0) mg/dL AST 21 (15-37) IU/L ALT 52 (14-63) IU/L Alkaline Phosphatase 115 (46-116) U/L Troponin I < 0.050 (0.000-0.056) ng/mL B-Natriuretic Peptide 68 (<100) PG/ML Total Protein 8.1 (6.4-8.2) g/dL Albumin 3.6 (3.4-5.0) g/dL Globulin 4.5 H (2.6-4.0) g/dL Albumin/Globulin Ratio 0.8 L (0.9-1.6) TSH, Ultra Sensitive 1.22 (0.36-3.74) uIU/mL SARS-CoV-2 RNA (BILL) (NEGATIVE) 08/14/21 08/14/21 08/14/21 Range/Units 17:57 18:10 19:44 WBC (4.0-11.0) K/uL RBC (4.30-5.90) M/uL Hgb (12.0-16.0) g/dL Hct (36.0-46.0) % MCV (80.0-98.0) fL MCH (27.0-32.0) pg MCHC (31.0-37.0) g/dL RDW Std Deviation (28.0-62.0) fl RDW Coeff of [place] (11.0-15.0) % Plt Count (150-400) K/uL MPV (7.40-12.00) fL Neut % (Auto) (48.0-80.0) % Lymph % (Auto) (16.0-40.0) % [place] % (Auto) (0.0-15.0) % Eos % (Auto) (0.0-7.0) % Baso % (Auto) (0.0-1.5) % Neut # (Auto) (1.4-5.7) K/uL Lymph # (Auto) (0.6-2.4) K/uL [place] # (Auto) (0.0-0.8) K/uL Eos # (Auto) (0.0-0.7) K/uL Baso # (Auto) (0.0-0.1) K/uL Nucleated RBC % /100WBC Nucleated RBCs # K/uL INR 1.02 APTT 23.4 (18.6-31.3) SEC D-Dimer, Quantitative 0.42 (0.0-0.50) mg/L FEU Sodium (136-145) mmol/L Potassium (3.5-5.1) mmol/L Chloride (98-107) mmol/L Carbon Dioxide (21.0-32.0) mmol/L BUN (7.0-18.0) mg/dL Creatinine (0.6-1.0) mg/dL Est Cr Clr Drug Dosing mL/min Estimated GFR (MDRD) ml/min Glucose (74-106) mg/dL Calcium (8.5-10.1) mg/dL Total Bilirubin (0.2-1.0) mg/dL AST (15-37) IU/L ALT (14-63) IU/L Alkaline Phosphatase (46-116) U/L Troponin I < 0.050 (0.000-0.056) ng/mL B-Natriuretic Peptide (<100) PG/ML Total Protein (6.4-8.2) g/dL Albumin (3.4-5.0) g/dL Globulin (2.6-4.0) g/dL Albumin/Globulin Ratio (0.9-1.6) TSH, Ultra Sensitive (0.36-3.74) uIU/mL SARS-CoV-2 RNA (BILL) NEGATIVE (NEGATIVE) 08/14/21 Range/Units 20:58 WBC (4.0-11.0) K/uL RBC (4.30-5.90) M/uL Hgb (12.0-16.0) g/dL Hct (36.0-46.0) % MCV (80.0-98.0) fL MCH (27.0-32.0) pg MCHC (31.0-37.0) g/dL RDW Std Deviation (28.0-62.0) fl RDW Coeff of [place] (11.0-15.0) % Plt Count (150-400) K/uL MPV (7.40-12.00) fL Neut % (Auto) (48.0-80.0) % Lymph % (Auto) (16.0-40.0) % [place] % (Auto) (0.0-15.0) % Eos % (Auto) (0.0-7.0) % Baso % (Auto) (0.0-1.5) % Neut # (Auto) (1.4-5.7) K/uL Lymph # (Auto) (0.6-2.4) K/uL [place] # (Auto) (0.0-0.8) K/uL Eos # (Auto) (0.0-0.7) K/uL Baso # (Auto) (0.0-0.1) K/uL Nucleated RBC % /100WBC Nucleated RBCs # K/uL INR APTT (18.6-31.3) SEC D-Dimer, Quantitative (0.0-0.50) mg/L FEU Sodium (136-145) mmol/L Potassium (3.5-5.1) mmol/L Chloride (98-107) mmol/L Carbon Dioxide (21.0-32.0) mmol/L BUN (7.0-18.0) mg/dL Creatinine (0.6-1.0) mg/dL Est Cr Clr Drug Dosing mL/min Estimated GFR (MDRD) ml/min Glucose (74-106) mg/dL Calcium (8.5-10.1) mg/dL Total Bilirubin (0.2-1.0) mg/dL AST (15-37) IU/L ALT (14-63) IU/L Alkaline Phosphatase (46-116) U/L Troponin I < 0.050 (0.000-0.056) ng/mL B-Natriuretic Peptide (<100) PG/ML Total Protein (6.4-8.2) g/dL Albumin (3.4-5.0) g/dL Globulin (2.6-4.0) g/dL Albumin/Globulin Ratio (0.9-1.6) TSH, Ultra Sensitive (0.36-3.74) uIU/mL SARS-CoV-2 RNA (BILL) (NEGATIVE) Meds: Medications Discontinued Medications Generic Name Dose Route Start Last Admin Trade Name Freq PRN Reason Stop Dose Admin Acetaminophen 1,000 mg 08/14/21 18:23 08/14/21 18:33 Acetaminophen 500 Mg Tab PO 08/14/21 18:24 1,000 mg ONETIME ONE Administration Aspirin 324 mg 08/14/21 17:43 08/14/21 18:02 Aspirin 81 Mg Tab.Chew PO 08/14/21 17:44 324 mg ONETIME ONE Administration Nitroglycerin 0.4 mg 08/14/21 17:43 08/14/21 18:15 Nitroglycerin 0.4 Mg Tab.Sl SL 0.4 mg Q5M PRN Administration Chest Pain - Re-Assessments/Exams Free Text/Narrative Re-Assessment/Exam: 08/14/21 19:38 Accepted this patient in signout from my partner the end of his shift. Patient is comfortable in the emergency department no symptoms. I reviewed her coronary vessel and thromboembolic disease risk. Patient is a non-smoker not diabetic she is treated for hypertension but not cholesterol. She has negative family history of coronary vessel disease and stroke. The patient has negative family and personal history of thromboembolic disease. She has no recent immobilization surgery or trip. Patient is low risk for both coronary vessel disease and thromboembolic disease. 08/14/21 21:33 The patient is asymptomatic and troponin remains negative at 3 hours after the initial draw. Discharged in satisfactory condition. Departure - Departure Time of Disposition: 21:33 Condition: Good Sepsis Event Note (ED) - Focused Exam Vital Signs: Vital Signs Temp Pulse Resp BP BP Pulse Ox 08/14/21 20:37 66 18 129/57 L 97 08/14/21 18:32 130/83 08/14/21 18:15 147/89 H 08/14/21 18:11 165/79 H 08/14/21 18:02 178/81 H 08/14/21 17:40 36.4 C 100 22 H 195/106 H 97
[2021-08-14] MEDS: Nitroglycerin 0.4 MG Tab.SL SL PRN ×3 (18:02→18:15)
[2021-08-14] MEDS ORDERED: Acetaminophen 500 MG Tab PO ONE (18:23)
--- NOTE | 2021-08-14 18:24 | CR ---
Indication: Chest pain Technique: Chest 1 view Comparison: May 15, 2019 Findings/Impression: Normal cardiomediastinal silhouette. Left-sided pacemaker leads project over the right atrium and right ventricle. Pulmonary vasculature. No effusion or pneumothorax. Minimal patchy opacity at the left lung base may reflect atelectasis or infection. No acute osseous abnormality. Dictated by Latricia Nazario MD @ 08/14/2021 6:24:08 PM (Electronically Signed)
[2021-08-14 18:39] LABS: BLOOD UREA NITROGEN,BUN 18 mg/dL (7.0-18.0); CARBON DIOXIDE,CO2 26.7 mmol/L (21.0-32.0); CHLORIDE,CL 102 mmol/L (98-107); GLUCOSE RANDOM 191 mg/dL (74-106); POTASSIUM,K 3.8 mmol/L (3.5-5.1); SODIUM,NA 142 mmol/L (136-145)
[2021-08-14 21:56] VITALS: BP 122/64; PULSE 64
== END 2021-08-14 21:59 | disposition home or self-care (01) ==
LOC: MW.ED 17:39
DX: R07.89 Other chest pain (principal); I10 Essential (primary) hypertension; Z20.822 Contact with and (suspected) exposure to COVID-19
CPT/HCPCS: 36415; 71045; 80053; 83880; 84443; 84484; 85025; 85379; 85610; 85730; 93005; 99285; A9270; U0002